=== PATIENT | male | born 1945 | race Caucasian/White ===

== ENCOUNTER → 2016-08-27 | Outpatient (CLI) | payer OTHER ==
[~2016-08-27] MED LIST: ASPI-482 PO; CALC625T20 PO; CHON250C PO; ESOM40CA25 PO; LOSA1TAB16 PO; MULT1TAB6 PO; OMEG-57 PO
--- NOTE | 2016-08-27 15:17 | KCIC ---
EXAM: Chest, 2 views. HISTORY: Productive cough and fever. COMPARISON: None. FINDINGS: Frontal and lateral views of the chest are obtained. There is no infiltrate, effusion or pneumothorax. The heart is normal in size. IMPRESSION: No acute pulmonary finding. Electronically signed by: Purvi Guillen MD (08/27/2016 3:14 PM) [id number]
== END | disposition home or self-care (01) ==
LOC: KCIC 14:12
PROVIDERS: ATTEND Internal Medicine
DX: R05 Cough (principal); R50.9 Fever, unspecified
CPT/HCPCS: 71020

== ENCOUNTER → 2017-07-09 | Outpatient (CLI) | payer OTHER | END | disposition home or self-care (01) | LOC: KCIC MRI 16:33 | DX: M48.02 Spinal stenosis, cervical region (principal) | CPT/HCPCS: 72141 ==

== ENCOUNTER → 2018-03-19 | Outpatient (CLI) | payer OTHER ==
[~2018-03-19] MED LIST changes: +GADOBUTROL 10 MMOL/10 ML VIAL IV ONE; -LOSA1TAB16 PO; +LOSA1TAB19 PO
--- NOTE | 2018-03-19 16:19 | RAD ---
MRI Brain with and without contrast History: Orbital pain Technique: Multiplanar, multi sequential pre and postcontrast MR imaging was performed of the brain. Comparison: September 14, 2013 Findings: There is no evidence of recent infarct or cytotoxic edema. Ventricular size is within normal limits. There is again mild supratentorial involutional change greater of the parietal lobes. There is no significant midline shift, intraaxial mass effect, or focal abnormal extra-axial fluid collection. There is no new significant signal abnormality of the brain parenchyma. There is no nodular parenchymal or leptomeningeal enhancement. There is preservation of the major intracranial flow-voids at the skull base. The cerebellar tonsils are normal in location. There is no significant abnormality of the pineal gland or pituitary gland. There is persistent somewhat increased more confluent mucosal thickening and mucous retention cyst of the anterior left ethmoid air cell extending to the frontal ethmoidal recess with adjacent mild to moderate left frontal sinus mucosal thickening somewhat increased. There is other patchy ethmoid air cell mucosal thickening, also minimal sphenoid sinus mucosal thickening greater on the left. There is negligible left greater than right maxillary sinus mucosal thickening, also small probable mucous retention cysts with complex signal features of left maxillary sinus. There is nonspecific mild increased CSF signal of the optic nerve sheaths. The mastoid air cells are aerated. There is mild nonspecific heterogeneity of the marrow of the clivus, no expansion. No enhancing intraconal mass is identified. Extraocular muscles are symmetric in appearance. No significant inflammatory change is identified of the orbital fat. There is no significant enhancement or signal abnormality of the optic nerves. There is no deviation of the optic chiasm. Globes are symmetric in appearance without associated nodular enhancement. Impression: 1. There is no new significant intracranial abnormality, again mild involutional change somewhat greater of the parietal lobes. No significant abnormality is identified of the orbits other than nonspecific increased CSF signal of the optic nerve sheaths which can be incidental finding. 2. There is paranasal sinus mucosal thickening as stated overall somewhat increased of left ethmoid air cells and left frontal ethmoidal recess. Electronically signed by: Vlad Olivares MD (03/19/2018 4:15 PM) [id number]
== END | disposition home or self-care (01) ==
LOC: MRI 14:06
PROVIDERS: ATTEND Psychiatry & Neurology Neurology
DX: H57.10 Ocular pain, unspecified eye (principal); J34.1 Cyst and mucocele of nose and nasal sinus
CPT/HCPCS: 70543; 70553; A9585

== ENCOUNTER → 2021-03-08 | Outpatient (CLI) | payer MEDICARE ==
[~2021-03-08] MED LIST changes: -GADOBUTROL 10 MMOL/10 ML VIAL IV ONE
--- NOTE | 2021-03-08 12:28 | KCIC ---
MRI of the cervical spine without contrast 03/08/2021 CLINICAL HISTORY: Neck pain with left arm burning which is worsening over the last 2 months. History of previous cervical spine fusion. TECHNIQUE: Unenhanced T1-weighted, T2-weighted and inversion recovery sagittal and gradient echo and T2-weighted axial images of the cervical spine were obtained. FINDINGS: Comparison study dated 07/09/2017. Minimal lateral curvature of the cervical spine is seen convex to the right. There is straightening o f the normal cervical lordosis. The patient is post anterior discectomy and fusion using an anterior plate, bone screws and bone graft material at C6-7. Degenerative signal changes are seen involving th e remaining discs of the cervical spine. Degenerative signal changes are seen within the marrow surro unding these discs. No area of abnormal signal intensity is seen involving the cervical spinal cord. The C2-3 disc space there is a mild generalized disc bulge. Degenerative changes are seen involving t he uncovertebral and facet joints bilaterally. These findings do not result in significant central sp inal canal or neural foraminal stenosis. At the C3-4 disc spaces there are mild generalized disc bulge. Superimposed on this disc bulge is a f ocal central disc protrusion. This measures 2 mm in AP diameter. Degenerative changes are seen involv ing the uncovertebral and facet joints, left greater than right. These findings do not result in sign ificant central spinal canal stenosis. Mild left neural foraminal stenosis is seen. The right neural foramen is patent. At the C4-5 disc space there is a mild generalized disc bulge. Superimposed on this disc bulge is a f ocal central disc protrusion. This measures 3 mm in AP diameter. Degenerative changes are seen involv ing the uncovertebral and facet joints bilaterally. These findings when combined do not result in sig nificant central spinal canal or neural foraminal stenosis. At the C5-6 disc space there is a mild generalized disc bulge. Degenerative changes are seen involvin g the uncovertebral and facet joints, left greater the right. These findings do not result in signifi cant central spinal canal stenosis. Mild left neural foraminal stenosis is seen. The right neural for amen is patent. At the C6-7 disc space degenerative changes are seen involving the uncovertebral and facet joints, ri ght greater than left. These findings do not result in significant central spinal canal stenosis. No neural foraminal stenosis is seen. At the C7-T1 disc space there is a mild generalized disc bulge. Degenerative changes are seen involvi ng the facet joints bilaterally. These findings do not result in significant central spinal canal or neural foraminal stenosis. IMPRESSION: 1. Post anterior discectomy and fusion at C6-7. 2. Degenerative changes are seen throughout the cervical spine. These findings do not result in signi ficant central spinal canal stenosis at any level. Mild left neural foraminal stenosis is seen at C3- 4 and C5-6. Electronically signed by: Toney García MD (03/08/2021 12:26 PM) [id number]
== END ==
LOC: KCIC MRI 10:20
PROVIDERS: ATTEND Physical Medicine & Rehabilitation
DX: M47.23 Other spondylosis with radiculopathy, cervicothoracic region (principal); M51.15 Intervertebral disc disorders with radiculopathy, thoracolumbar region; M48.02 Spinal stenosis, cervical region
CPT/HCPCS: 72141

== ENCOUNTER → 2021-04-03 | Outpatient (CLI) | payer MEDICARE ==
[~2021-04-03] MED LIST changes: +HYDR-2145 PO; +PANT40TA77 PO; +SILD20TA4 PO; +SUMA100T4 PO
--- NOTE | 2021-04-03 12:56 | PDOC1 ---
INITIAL PAIN CONSULT DATE OF SERVICE: DOS: DATE: 04/03/21 TIME: 12:41 CHIEF COMPLAINT: Chief Complaint: Neck and left upper extremity pain HISTORY OF PRESENT ILLNESS: 75-year-old male presents with history of pain base the neck and left upper extremity for about 2 months not result of any specific injury or accident that he is aware of but has had significant pain in the base the neck rating to left upper extremity in the anterior deltoid anterior biceps into the forearm and the hand specially and first finger on the left side patient reports is getting worse with activity and is worse with lifting items repetitive motions reaching forward reaching upwards over his head describes pain is intermittent intensity but tingling in the thumb and fingers with burning pain in the neck and shoulder sometimes cramping and shooting as well in the left upper extremity patient reports it is worse with activity is noted better with resting generally does not awaken her from sleep at night. Patient has had physical therapy, and is currently undergoing additional physical therapy currently, now with cervical traction which is helpful but not relieving the pain significantly patient reports he has had exercise which he is doing as well currently from the physical therapy office patient is taking ibuprofen as well as Tylenol both of which do decrease the pain by about 30 to 40% but are limited. 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 Patient have MRI scan of the cervical spine showing post anterior discectomy and fusion C6-7 with degenerative changes with mild left neuroforaminal stenosis at C3-4 and C5-6 and degenerative changes involving the facet joints the left greater than right with mild left neuroforaminal stenosis. PAST MEDICAL HISTORY: PMH: Hypertension, arthritis,, prostate cancer PREVIOUS SURGERIES: Past Surgical Hx: Prostatectomy, rotator cuff repair on the right, laparoscopic left knee surgery, cervical laminectomy and fusion CURRENT MEDICATIONS: Current Meds: Active Scripts Medications Dose Route/Sig Max Daily Dose Days Date Category Sumatriptan Succinate 100 Mg Tablet 25 Mg PO ONCE PRN 04/03/21 Reported Sildenafil (Sildenafil Citrate) 20 Mg Tablet 20 Mg PO TID PRN 04/03/21 Reported Pantoprazole Sodium (Pantoprazole Sodium) 40 Mg Tablet.dr 40 Mg PO DAILYAC 04/03/21 Reported Hydrochlorothiazide Tablet (Hydrochlorothiazide) 25 Mg Tablet 25 Mg PO DAILY 04/03/21 Reported Centrum Complete Multivit Tab (Multivitamin/Iron/Folic Acid) 1 Each Tablet 1 Each PO DAILY 07/27/13 Reported Fiber Tabs (Calcium Polycarbophil) 625 Mg Tablet 1,200 Mg PO DAILY 07/27/13 Reported Aspir 81 (Aspirin) 81 Mg Tablet.dr 81 Mg PO DAILY 07/27/13 Reported Losartan-Hctz 50-12.5 Mg Tab (Losartan/Hydrochlorothiazide) 1 Each Tablet 1 Each PO DAILY 07/27/13 Reported ALLERGIES; Allergies: Coded Allergies: Penicillins (Verified Allergy, Intermediate, Rash, 07/27/13) meperidine (Verified Allergy, Intermediate, Rash, 07/27/13) FAMILY HISTORY: Family Hx: No major medical problem conditions that he is aware of. SOCIAL HISTORY: Social Hx: Patient drinks alcohol about 2 drinks maybe twice a week does not smoke not use any illegal illicit recreational drugs is and lives locally in [facility]. REVIEW OF SYSTEMS: ROS: Positive for those items mentioned in history of present illness, all systems are reviewed, otherwise negative ,and are complete full and well-documented on patient's chart. PHYSICAL EXAM: VS: Blood pressure is 131/86 pulse 78 respirations 18 temperature 98.2 F height 5 feet 7 inches weight is 241 pounds. PE: PHYSICAL EXAMINATION: GENERAL: The patient is awake, alert, oriented, appropriate, very pleasant in demeanor HEENT: Shows normocephalic, atraumatic. Extraocular movements are intact and symmetrical. Oral cavity: Mucous membranes moist and pink. NECK: Shows anterior throat supple without palpable lymphadenopathy noted. Swallow reflex symmetrical. CHEST: Shows normal on inspection. Breath sounds are clear bilaterally, distant but no rales rhonchi wheezes auscultated. HEART: Shows S1, S2 clear. No murmurs auscultated. ABDOMEN: Soft, nontender, nondistended. No palpable organomegaly is noted. BACK: Shows spine grossly in the midline. Normal-appearing cervical lordotic curvature. Cervical paraspinous muscles show symmetrical inspection, palpation some moderate tenderness diffusely in the inferior aspect the cervical paraspinous posture on the left greater than the right but without significant atrophy hypertrophy no trigger points no radiation of pain. Patient shows good rotation motion of the cervical spine with some moderate tenderness with extension as well as with the left lateral rotation. Right rotation shows full past 45 degrees close to 90 degrees without difficulty. There is slightly increased thoracic kyphosis, some minor flattening of the lumbar lordotic curvature. EXTREMITIES: Upper extremities show deep tendon reflexes 2+ in the biceps and triceps tendons. 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 Peripheral pulses are 2+ radial. No pe ripheral edema is noted bilaterally. Upper extremities are warm and dry to touch, equal in color and appearance. Shoulder shrug strong intact without loss of strength on resistance as is abduction of the shoulder to 90 degrees without loss of strength on resistance bilaterally. SKIN: Shows warm and dry, good turgor. No edema. No sores, rashes or bruising throughout. IMPRESSION: Impression: 75-year-old male with about 2-month history increasing pain base the neck and left upper extremity radicular fashion following a C6-7 dermatomal distribution to the left thumb. MRI scan cervical spine as noted Arthritis Hypertension Plan: Options were discussed the patient including serve medical managements continued physical therapy and interventional techniques. Patient elects interventional techniques. We discussed a cervical epidural steroid injection using description as well as anatomical models to describe the procedure. Patient will wait for preauthorization with his insurance provider once obtained letter return for a translaminar approach cervical epidural steroid injection at the C6-7 level with fluoroscopic guidance. Meantime, patient continue with stretching strength exercises maintain physical therapy as scheduled as well as oral analgesics as currently. BOOGIE ROBLES MD Apr 03, 2021 12:56
== END | disposition home or self-care (01) ==
LOC: PNCL 10:12
PROVIDERS: ATTEND Anesthesiology
DX: M79.602 Pain in left arm (principal); M54.2 Cervicalgia; I10 Essential (primary) hypertension; M19.90 Unspecified osteoarthritis, unspecified site; Z79.82 Long term (current) use of aspirin; Z79.899 Other long term (current) drug therapy; Z98.890 Other specified postprocedural states; Z88.0 Allergy status to penicillin; Z88.8 Allergy status to other drugs, medicaments and biological substances
CPT/HCPCS: G0463

== ENCOUNTER → 2021-04-16 | Outpatient (CLI) | payer MEDICARE ==
[~2021-04-16] MED LIST changes: +ALPR0.25 PO; +DEXAMETHASONE PRES.FREE 10 MG/ML VIAL. ONE; +IOHEXOL 180 MG/ML 10 ML VIAL. ONE; +SERT50TA PO
--- NOTE | 2021-04-16 11:59 | PDOC ---
Progress Note - Pain Clinic Date of Service: DOS: DATE: 04/16/21 TIME: 11:56 Diagnosis: Dx: Cervical radiculopathy with cervical degenerative disc disease History or Present Illness: HPI: 75-year-old male returns for follow-up status post evaluation and preauthorization for cervical epidural steroid injection patient reports doing about the same pain the base of the neck and the left upper extremity as it was previously patient reports that worse with repetitive motions reaching reaching over his head with his left arm weightbearing and reaching forward patient reports he is done physical therapy still doing physical therapy exercises and has been taking a new sleeping pill which is helping him sleep but this pain is still waking about every 3-4 hours despite this patient reports the pain is in the base the neck and left upper extremity in the left forearm and hand into the fingers on the left side once again patient reports his pain is a 5 on a scale 10 is worse over the past week for an average to 1 its least is a 4 today. Patient reports no new motor or sensory deficits. Physical Exam: VS: Blood pressure is 141/77 pulse 80 respirations 18 temperature 98.2 F height is 5 feet 7 inches weight is 236 pounds. PE: PHYSICAL EXAMINATION: GENERAL: The patient is awake, alert, oriented, appropriate, very pleasant in demeanor HEENT: Shows normocephalic, atraumatic. Extraocular movements are intact and symmetrical. Oral cavity: Mucous membranes moist and pink. NECK: Shows anterior throat supple without palpable lymphadenopathy noted. Swallow reflex symmetrical. CHEST: Shows normal on inspection. Breath sounds are clear bilaterally, no rales or rhonchi. HEART: Shows S1, S2 clear. No murmurs auscultated. ABDOMEN: Soft, nontender, nondistended. No palpable organomegaly is noted. BACK: Shows spine grossly in the midline. Normal-appearing cervical lordotic curvature. Cervical paraspinous muscles show symmetrical with inspection, on palpation some moderate tenderness diffusely bilaterally diffusely without significant radiation. Patient does show good rotation motion cervical spine with some minor tenderness with extension but not with forward flexion. There is slightly increased thoracic kyphosis, some minor flattening of the lumbar lordotic curvature. EXTREMITIES: Upper extremities show deep tendon reflexes 2+ in the biceps and triceps tendons. 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 Peripheral pulses are 2+ radial. No peripheral edema is noted bilaterally. Upper extremities are warm and dry to touch, equal in color and appearance. SKIN: Shows warm and dry, good turgor. No edema. No sores, rashes or bruising throughout. Procedure: Procedure: Options were discussed with patient. Patient's old chart was viewed as was his current medication regimen updated review of systems updated today as well. We will proceed with a cervical epidural steroid injection today with fluoroscopic guidance. Risks were discussed including but not limited to: Bleeding, infection, possibility of epidural hematoma and subsequent neurological compromise, dural puncture, headaches, spinal cord and/or nerve damage, side effects of steroid medication, and poor results regarding pain control. Patient understands and wished to proceed. Patient will return to the clinic in approximately 2 weeks for follow-up, was counseled as to return appointment, activity level, and side effect to be aware of. Medication Injected: Med Injected: Procedure cervical epidural steroid injection at the C6-7 level, using local anesthetic under sterile prep and drape using C-arm fluoroscopic guidance under local anesthesia medications injected , 20 mg dexamethasone +5 mL normal saline and 2 mL contrast; condition at discharge is stable patient tolerated procedure well. and had no complications Condition at Discharge: Condition at Discharge: Condition at discharge stable, patient tolerated procedure well and had no complications. BOOGIE ROBLES MD Apr 16, 2021 11:59
--- NOTE | 2021-04-16 12:00 | PDOC4 ---
Procedure Note: ICD 10 Code: ICD 10 Code: M54.12 M50.30 Procedure Note: Patient was consented for cervical epidural steroid injection with fluoroscopic guidance. Risks were discussed including but not limited to: Bleeding, infection, possibility of epidural hematoma and subsequent neurological compromise, dural puncture, headaches, spinal cord and/or nerve damage, side effects of steroid medication, and poor results regarding pain control. Patient understands and wished to proceed. Procedure cervical epidural steroid injection at the C6-7 level, using local anesthetic under sterile prep and drape using C-arm fluoroscopic guidance under local anesthesia medications injected , 20 mg dexamethasone +5 mL normal saline and 2 mL contrast; condition at discharge is stable patient tolerated procedure well. and had no complications BOOGIE ROBLES MD Apr 16, 2021 12:00
== END | disposition home or self-care (01) ==
LOC: PNCL 10:29
PROVIDERS: ATTEND Anesthesiology
DX: M50.10 Cervical disc disorder with radiculopathy, unspecified cervical region (principal); M54.12 Radiculopathy, cervical region; Z79.82 Long term (current) use of aspirin; Z79.899 Other long term (current) drug therapy
CPT/HCPCS: 62321; J1100; Q9965

== ENCOUNTER → 2021-04-30 | Outpatient (CLI) | payer MEDICARE ==
[~2021-04-30] MED LIST changes: -DEXAMETHASONE PRES.FREE 10 MG/ML VIAL. ONE; -IOHEXOL 180 MG/ML 10 ML VIAL. ONE
--- NOTE | 2021-04-30 11:46 | PDOC ---
Progress Note - Pain Clinic Date of Service: DOS: DATE: 04/30/21 TIME: 11:41 Diagnosis: Dx: Cervical radiculopathy with cervical degenerative disc disease History or Present Illness: HPI: 75-year-old male returns for follow-up status post cervical epidural steroid injection x1. Patient reports he did very well with about 75% improvement initially at night pain is beginning to return some in the right upper extremity in the base of the neck and shoulders but still at least 50% improved and has been over 3 weeks now patient reports pain is a 5 on a scale 10 is worse over the past with 3 on average 1 its least is increase his activity with greater eas e and comfort doing household activity as well as travel with greater ease driving using his left upper extremity with much greater ease and comfort patient reports he is sleeping better at night does not pain the base the neck and the shoulders bilaterally but radiating only in the left upper extremity no motor loss still has some difficulty with fine motor movements in the fingertips with buttons and snaps as well as twisting a jar lid off is still more difficult than normal. Patient reports no deficits but has significant itching in the left upper extremity in the bicep as well as the forearm and the hand with numbness and tingling in the thumb and first and second fingers as well. Patient reports he is decreased the amount of Tylenol that he was taking since prior to his injection and is continue with stretching and strength exercises also applying some heat and cold compresses to the base of the neck and left shoulder which is helpful. Physical Exam: VS: Blood pressure is 138/69 pulse 80 respirations 18 temperature 98.1 F height 5 feet 7 inches weight is 249 pounds. PE: PHYSICAL EXAMINATION: GENERAL: The patient is awake, alert, oriented, appropriate, very pleasant in demeanor HEENT: Shows normocephalic, atraumatic. Extraocular movements are intact and symmetrical. Oral cavity: Mucous membranes moist and pink. NECK: Shows anterior throat supple without palpable lymphadenopathy noted. Swallow reflex symmetrical. CHEST: Shows normal on inspection. Breath sounds are clear bilaterally, distant no rales or rhonchi auscultated. HEART: Shows S1, S2 clear. No murmurs auscultated. ABDOMEN: Soft, nontender, nondistended. No palpable organomegaly is noted. BACK: Shows spine grossly in the midline. Normal-appearing cervical lordotic curvature. Cervical paraspinous muscles show symmetrical inspection, on palpation some moderate tenderness diffusely in the middle and lower extrusive paraspinous muscles of the superior medial trapezius more on the left than the right but without trigger points atrophy hypertrophy no asymmetry. Patient shows good rotation motion cervical spine both laterally as well as full extension full forward flexion without significant limitation. There is slightly increased thoracic kyphosis, some minor flattening of the lumbar lordotic curvature. EXTREMITIES: Upper extremities show deep tendon reflexes 2+ in the biceps and tricep tendons. Motor exam is 5 on a scale of 5 with right hand mixer, biceps and triceps flexion and 4/5 on the left. Peripheral pulses are 2+ radial. No peripheral edema is noted bilaterally. Upper extremities are warm and dry to touch, equal in color and appearance. Shoulder shrug is strong and intact without loss of strength on resistance bilaterally. SKIN: Shows warm and dry, good turgor. No edema. No sores, rashes or bruising throughout. Procedure: Procedure: Options discussed with patient. Patient's old chart was reviewed his current medication regimen updated current review of systems updated today as well. We will preauthorize patient for an additional cervical epidural steroid injection with fluoroscopic guidance. Patient still with clinical radiculopathy in C6-7 dermatomal distribution in the left upper extremity improved significantly, however still significant. Patient will continue with stretching strengthening exercise as well as hot and cold compresses and oral analgesics as necessary as currently. Once approved, patient will return for translaminar approach C6-7 level cervical epidural steroid injection with fluoroscopic guidance. Medication Injected: Med Injected: None Condition at Discharge: Condition at Discharge: Condition at discharge is stable. BOOGIE ROBLES MD Apr 30, 2021 11:46
== END | disposition home or self-care (01) ==
LOC: PNCL 10:55
PROVIDERS: ATTEND Anesthesiology
DX: M50.10 Cervical disc disorder with radiculopathy, unspecified cervical region (principal); Z79.82 Long term (current) use of aspirin; Z79.899 Other long term (current) drug therapy; Z88.0 Allergy status to penicillin; Z88.8 Allergy status to other drugs, medicaments and biological substances
CPT/HCPCS: 99212; G0463

== ENCOUNTER → 2021-05-16 | Outpatient (CLI) | payer MEDICARE ==
[~2021-05-16] MED LIST changes: +DEXAMETHASONE PRES.FREE 10 MG/ML VIAL. ONE; +IOHEXOL 180 MG/ML 10 ML VIAL. ONE
--- NOTE | 2021-05-16 13:49 | PDOC ---
Progress Note - Pain Clinic Date of Service: DOS: DATE: 05/16/21 TIME: 13:46 Diagnosis: Dx: Cervical radiculopathy with cervical degenerative disc disease History or Present Illness: HPI: 75-year-old male returns for follow-up status post cervical epidural steroid injection x1. Patient reports about 50% improvement overall but initially 75% improvement with pain in the neck and left upper extremity patient reports is still about 50% even after waiting for prolonged period for insurance approval of his next visit. Patient reports pain the base the neck and left upper extremity rating to left forearm and hand patient reports is a 5 on scale 10 is worse over the past week for an average 2 to [place] is a 4 today patient reports dull and tingling worse with repetitive motions reaching over his head with his left arm but getting better and has not been dropping any items or having any motor loss. Patient reports no difficulty with sleeping no deficits. Physical Exam: VS: Blood pressure is 128/84 pulse 75 respirations 18 temperature 98.2 F height 5 feet 7 inches weight is 250 pounds. PE: PHYSICAL EXAMINATION: GENERAL: The patient is awake, alert, oriented, appropriate, very pleasant in demeanor HEENT: Shows normocephalic, atraumatic. Extraocular movements are intact and symmetrical. Patient wearing eyeglasses. NECK: Shows anterior throat supple without palpable lymphadenopathy noted. Swallow reflex symmetrical. CHEST: Shows normal on inspection. Breath sounds are clear bilaterally, distant but no rales or rhonchi. HEART: Shows S1, S2 clear. No murmurs auscultated. ABDOMEN: Soft, nontender, nondistended. No palpable organomegaly is noted. BACK: Shows spine grossly in the midline. Normal-appearing cervical lordotic c urvature. Cervical paraspinous muscles show symmetrical inspection, with palpation some moderate tenderness diffusely in the inferior aspect the cervical paraspinous muscles are more on the left than the right but without atrophy hypertrophy or asymmetry and without trigger points or radiation. Patient with full rotation of motion cervical spine without difficulty. There is slightly increased thoracic kyphosis, some minor flattening of the lumbar lordotic curvature. EXTREMITIES: Upper extremities show deep tendon reflexes 2+ in the biceps and triceps tendons. 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 Peripheral pulses are 2+ radial. No peripheral edema is noted bilaterally. Upper extremities are warm and dry to touch, equal in color and appearance. Shoulder shrug strong intact without loss of strength on resistance bilaterally. SKIN: Shows warm and dry, good turgor. No edema. No sores, rashes or bruising throughout. Procedure: Procedure: Options were discussed with the patient. Patient's old chart was reviewed his current medication regimen updated current review of systems updated today as well. We will proceed with a cervical epidural steroid injection today with fluoroscopic guidance. Risks were discussed including but not limited to: Bleeding, infection, possibility of epidural hematoma and subsequent neurological compromise, dural puncture, headaches, spinal cord and/or nerve damage, side effects of steroid medication, and poor results regarding pain control. Patient understands and wished to proceed. Patient will return to the clinic in approximately 2 weeks for follow-up, was counseled as to return appointment, activity level, and side effect to be aware of. Medication Injected: Med Injected: Procedure cervical epidural steroid injection at the C6-7 level, using local anesthetic under sterile prep and drape using C-arm fluoroscopic guidance under local anesthesia medications injected ; 20 mg dexamethasone +5 mL normal saline and 2 mL contrast; condition at discharge is stable patient tolerated pr ocedure well. and had no complications Condition at Discharge: Condition at Discharge: Condition at discharge stable, paced tolerated procedure well and had no complications. BOOGIE ROBLES MD May 16, 2021 13:49
--- NOTE | 2021-05-16 13:50 | PDOC4 ---
Procedure Note: ICD 10 Code: ICD 10 Code: M54.12 M50.30 Procedure Note: Patient was consented for cervical epidural steroid injection with fluoroscopic guidance. Risks were discussed including but not limited to: Bleeding, infection, possibility of epidural hematoma and subsequent neurological compromise, dural puncture, headaches, spinal cord and/or nerve damage, side effects of steroid medication, and poor results regarding pain control. Patient understands and wished to proceed. Procedure cervical epidural steroid injection at the C6-7 level, using local anesthetic under sterile prep and drape using C-arm fluoroscopic guidance under local anesthesia medications injected ; 20 mg dexamethasone +5 mL normal saline and 2 mL contrast; condition at discharge is stable patient tolerated procedure well. and had no complications BOOGIE ROBLES MD May 16, 2021 13:50
== END | disposition home or self-care (01) ==
LOC: PNCL 12:59
PROVIDERS: ATTEND Anesthesiology
DX: M50.10 Cervical disc disorder with radiculopathy, unspecified cervical region (principal); M54.12 Radiculopathy, cervical region; Z79.82 Long term (current) use of aspirin; Z79.899 Other long term (current) drug therapy; Z88.0 Allergy status to penicillin; Z88.8 Allergy status to other drugs, medicaments and biological substances
CPT/HCPCS: 62321; J1100; Q9965

== ENCOUNTER → 2021-05-30 | Outpatient (CLI) | payer MEDICARE ==
[~2021-05-30] MED LIST changes: -DEXAMETHASONE PRES.FREE 10 MG/ML VIAL. ONE; -IOHEXOL 180 MG/ML 10 ML VIAL. ONE
--- NOTE | 2021-05-30 14:37 | PDOC4 ---
Procedure Note: ICD 10 Code: ICD 10 Code: M54.12 M50.30 Procedure Note: Patient was consented for cervical epidural steroid injection with fluoroscopic guidance. Risks were discussed including but not limited to: Bleeding, infection, possibility of epidural hematoma and subsequent neurological compromise, dural puncture, headaches, spinal cord and/or nerve damage, side effects of steroid medication, and poor results regarding pain control. Patient understands and wished to proceed. Procedure cervical epidural steroid injection at the C6-7 level, using local anesthetic under sterile prep and drape using C-arm fluoroscopic guidance under local anesthesia medications injected ; 20 mg dexamethasone +5 mL normal saline and 2 mL contrast; condition at discharge is stable patient tolerated procedure well. and had no complications BOOGIE ROBLES MD May 30, 2021 14:37
--- NOTE | 2021-05-30 14:37 | PDOC ---
Progress Note - Pain Clinic Date of Service: DOS: DATE: 05/30/21 TIME: 14:12 Diagnosis: Dx: Cervical radiculopathy with cervical degerative disc disease History or Present Illness: HPI: 75-year-old male returns for follow-up status post cervical epidural steroid injection x2. Patient reports about 80% improvement initially for about a month and then the pain began to return but is still improved and still about 50% improvement overall even after several weeks following the injection. Patient reports pain in the base the neck and into the left upper extremity but again much improved from previous patient reports some pain in the base of the neck an d skull and also some increase in intensity with migraine headaches when the pain is worse in the shoulder and the left arm patient reports he continues to radiate in the left arm into the deltoid as well as the anterior bicep into the forearm into the hand and fingers at times but no loss of motor function has some difficulty with fine motor movements such as using buttons on his shirt with the fingers but otherwise no significant deficits. Patient rates his pain as a 3 on scale 10 is worse over the past week 1 on average 1 to [place] is a 3 today. Patient reports is dull and tight in the neck radiating the left upper extremity on and off in intensity better with resting worse with repetitive motions or lifting or reaching over his head with his left hand. Physical Exam: VS: Blood pressure is 110/72 pulse 74 respirations 18 temperature 97.3 F height is 5 foot 7 inches weight is 239 pounds. PE: PHYSICAL EXAMINATION: GENERAL: The patient is awake, alert, oriented, appropriate, very pleasant in demeanor HEENT: Shows normocephalic, atraumatic. Extraocular movements are intact and symmetrical. Patient wearing eyeglasses. Oral cavity: Mucous membranes moist and pink. Dentition is intact. NECK: Shows anterior throat supple without palpable lymphadenopathy noted. Swallow reflex symmetrical. CHEST: Shows normal on inspection. Breath sounds are clear bilaterally, no rales or rhonchi auscultated. HEART: Shows S1, S2 clear. No murmurs auscultated. ABDOMEN: Soft, nontender, nondistended. No palpable organomegaly is noted. BACK: Shows spine grossly in the midline. Normal-appearing cervical lordotic curvature. Cervical paraspinous muscles show symmetrical inspection, on palpation some moderate tenderness diffusely bilaterally diffusely without significant radiation in the inferior aspect the cervical paraspinous musculature as well as in the medial aspect of the superior trapezius there is slightly increased thoracic kyphosis, some minor flattening of the lumbar lordotic curvature. EXTREMITIES: Upper extremities show deep tendon reflexes 2+ in the biceps and triceps tendons. 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 Peripheral pulses are 2+ radial. No peripheral edema is noted bilaterally. Upper extremities are warm and dry to touch, equal in color and appearance. SKIN: Shows warm and dry, good turgor. No edema. No sores, rashes or bruising throughout. Procedure: Procedure: Options discussed with the patient. Patient's old chart was reviewed his current medication regimen updated, and current review of systems updated today as well. We will proceed with a cervical epidural steroid injection today with fluoroscopic guidance. Risks were discussed including but not limited to: Bleeding, infection, possibility of epidural hematoma and subsequent neurological compromise, dural puncture, headaches, spinal cord and/or nerve damage, side effects of steroid medication, and poor results regarding pain control. Patient understands and wished to proceed. Patient will return to the clinic in approximately 2 weeks for follow-up, was counseled as to return appointment, active level, and side effects to be aware of. Medication Injected: Med Injected: Procedure cervical epidural steroid injection at the C6-7 level, using local anesthetic under sterile prep and drape using C-arm fluoroscopic guidance under local anesthesia medications injected ; 20 mg dexamethasone +5 mL normal saline and 2 mL contrast; condition at discharge is stable patient tolerated procedure well. and had no complications Condition at Discharge: Condition at Discharge: Condition at discharge stable, paced tolerated procedure well and had no complications. BOOGIE ROBLES MD May 30, 2021 14:37
--- NOTE | 2021-05-30 14:39 | FMN ---
PT PROBLEMS Progress note and procedure note dictated on date of May 30, 2021, mistakenly dictated on incorrect patient. BOOGIE ROBLES MD May 30, 2021 14:39
--- NOTE | 2021-05-30 14:45 | PDOC ---
Progress Note - Pain Clinic Date of Service: DOS: DATE: 05/30/21 TIME: 14:40 Diagnosis: Dx: Cervical radiculopathy with cervical degenerative disc disease History or Present Illness: HPI: 75-year-old male returns for follow-up status post cervical epidural to injection x2. Patient reports about 80% improvement initially but now about 50% improvement after about 4 weeks since the injection patient reports dull pain the base the neck and the left upper extremity worse with repetitive motions lifting items or reaching over his head with his left arm for extended periods more than 1 to 2 minutes patient rates his pain is a 3 on scale 10 is worse over the past week well on average 1 its least and is a 1 today patient reports a dull and tight alternating the neck and the left upper extremity. Patient reports no new deficits but significant fatigue in the left upper extremity with repetitive motion weight lifting and reaching forward with weightbearing as well. Patient reports is better with laying down or resting or sitting his head up against a cushion when he is sitting in his chair at home patient reports it does not awaken her from sleep. Patient reports no deficits but some significant fatigability of the left arm but again overall very much improved. Patient reports increase in activity during the day is driving with much greater ease and comfort performing activities of daily living much more comfortably and effectively. Patient continues to do stretching strength exercises on his own as well as oral analgesics mostly Tylenol or Tylenol Sinus at night. Patient reports his headaches have decreased to a significant extent, but still has migraines when his neck pain is increased. Physical Exam: VS: Blood pressure is 110/72 pulse 74 respirations 18 temperature 97.3 F height is 5 foot 7 inches weight is 239 pounds. PE: PHYSICAL EXAMINATION: GENERAL: The patient is awake, alert, oriented, appropriate, very pleasant in demeanor HEENT: Shows normocephalic, atraumatic. Extraocular movements are intact and symmetrical. Oral cavity: Mucous membranes moist and pink. Dentition is intact. NECK: Shows anterior throat supple without palpable lymphadenopathy noted. Swallow reflex symmetrical. CHEST: Shows normal on inspection. Breath sounds are clear bilaterally, no rales rhonchi or wheezes auscultated. HEART: Shows S1, S2 clear. No murmurs auscultated. ABDOMEN: Soft, nontender, nondistended. No palpable organomegaly is noted. BACK: Shows spine grossly in the midline. Normal-appearing cervical lordotic curvature. Cervical paraspinous muscles show symmetrical inspection, on palpation some moderate tenderness diffusely in the inferior aspect the cervical paraspinous muscles the superior medial trapezius more on the left than the right but without trigger points or radiation. Patient shows good rotation motion of the cervical spine with lateral as well as full extension full forward flexion without significant increase in pain. EXTREMITIES: Upper extremities show deep tendon reflexes 2+ in the biceps and triceps tendons. 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 Peripheral pulses are 2+ radial. No peripheral edema is noted bilaterally. Upper extremities are warm and dry to touch, equal in color and appearance. SKIN: Shows warm and dry, good turgor. No edema. No sores, rashes or bruising throughout. Procedure: Procedure: Options were discussed with the patient. Patient's old chart was reviewed his current medication regimen updated current review of systems updated today as well. Patient continues to have significant radiculopathy in the left upper extremity in a C6-7 dermatomal distribution. We will preauthorize patient for an additional cervical epidural steroid injection with fluoroscopic guidance. Once approved, patient will return to clinic for translaminar approach C6-7 level cervical epidural steroid injection with fluoroscopic guidance. In the meantime, patient will continue with stretching strength exercises as well as oral analgesics as currently. Medication Injected: Med Injected: None Condition at Discharge: Condition at Discharge: Condition at discharge is stable. BOOGIE ROBLES MD May 30, 2021 14:44
== END | disposition home or self-care (01) ==
LOC: PNCL 13:36
PROVIDERS: ATTEND Anesthesiology
DX: M50.10 Cervical disc disorder with radiculopathy, unspecified cervical region (principal); M54.12 Radiculopathy, cervical region; Z79.82 Long term (current) use of aspirin; Z79.899 Other long term (current) drug therapy; Z88.0 Allergy status to penicillin; Z88.8 Allergy status to other drugs, medicaments and biological substances
CPT/HCPCS: 62321; 99212; G0463